=== PATIENT | female | born 1970 | race Caucasian/White ===

== ENCOUNTER 2017-11-19 14:47 | Emergency (ER) | payer OTHER ==
[~2017-11-19] VITALS: Ht 172.7 cm; Wt 74.8 kg
[2017-11-19] MEDS ORDERED: ZYRTEC10 M3 (15:27)
[2017-11-19] MEDS ORDERED: DOLOGEN CAPLET1 EACH PO (21:30)
== END 2017-11-19 22:47 | disposition home or self-care (01) ==
LOC: ER 14:47
DX: S62.396A Other fracture of fifth metacarpal bone, right hand, initial encounter for closed fracture (principal); W22.8XXA Striking against or struck by other objects, initial encounter; Y93.89 Activity, other specified; Y92.098 Other place in other non-institutional residence as the place of occurrence of the external cause; Y99.8 Other external cause status

== ENCOUNTER 2017-11-27 08:19 | Day surgery (SDC) | payer OTHER ==
[~2017-11-27 08:19] MED LIST: DOLOGEN CAPLET1 EACH PO; ZYRTEC10 M3
== END 2017-11-27 17:30 | disposition home or self-care, planned readmission (81) ==
LOC: CIR.AMB 08:19
DX: S62.316A Displaced fracture of base of fifth metacarpal bone, right hand, initial encounter for closed fracture (principal)